=== PATIENT | female | born 1980 | race Asian ===

== ENCOUNTER 2021-08-11 13:38 | Emergency (ER) | payer OTHER ==
[~2021-08-11] VITALS: Ht 160 cm; Wt 80.7 kg
[2021-08-11 13:46] VITALS: BP 127/73; TEMP 98.7
== END 2021-08-11 15:30 | disposition home or self-care (01) ==
LOC: ED 13:38
DX: J06.9 Acute upper respiratory infection, unspecified (principal); U07.1 COVID-19
CPT/HCPCS: 87502; 87635; 87651; 99283; U0003